=== PATIENT | male | born 1940 | race Caucasian/White ===

== ENCOUNTER 2024-09-18 10:36 | Outpatient (RCR) | payer MEDICARE, SELFPAY | END 2024-09-21 23:59 | disposition home or self-care (01) | LOC: SCTC 10:36 | PROVIDERS: PCP Family Medicine; Referring Provider Urology; Visit Provider Radiology Therapeutic Radiology | DX: Z51.0 Encounter for antineoplastic radiation therapy (principal); C61 Malignant neoplasm of prostate; Z90.79 Acquired absence of other genital organ(s); R97.21 Rising PSA following treatment for malignant neoplasm of prostate; Z79.818 Long term (current) use of other agents affecting estrogen receptors and estrogen levels | CPT/HCPCS: 77336; 77385 ==

== ENCOUNTER → 2024-10-01 | Outpatient (BNVA) | payer MEDICARE, SELFPAY | END | disposition home or self-care (01) | PROVIDERS: PCP Family Medicine; Referring Provider Family Medicine; Visit Provider Urology | DX: C61 Malignant neoplasm of prostate (principal); E11.9 Type 2 diabetes mellitus without complications; I10 Essential (primary) hypertension; Z86.73 Personal history of transient ischemic attack (TIA), and cerebral infarction without residual deficits; E78.00 Pure hypercholesterolemia, unspecified | CPT/HCPCS: 81003; 99212; G0463 ==

== ENCOUNTER 2024-10-08 10:38 | Outpatient (RCR) | payer MEDICARE, SELFPAY ==
--- NOTE | 2024-09-23 12:33 | CTCTRTNOTE_ITS ---
[facility] [address], [place] [address] Weekly Management Date: 09/23/2024 ?? Name: ALFREDO UNDERWOOD : 1940 A. Patient is currently at 2700 cGy. B. Patient is tolerating treatment well. Minimal side effects pelvis or generally following Lupron a nd radiation to the pelvis. C. Resume radiation therapy. Electronically signed by: Bhaskar Rojas M.D. 09/23/2024 12:31 PM
== END 2024-10-22 23:59 | disposition home or self-care (01) ==
LOC: SCTC 10:38
PROVIDERS: PCP Family Medicine; Referring Provider Family Medicine; Visit Provider Radiology Therapeutic Radiology
DX: Z51.0 Encounter for antineoplastic radiation therapy (principal); C61 Malignant neoplasm of prostate; Z90.79 Acquired absence of other genital organ(s)
CPT/HCPCS: 77336; 77385